=== PATIENT | female | born 1990 ===

== ENCOUNTER 2022-08-04 16:59 | Outpatient (CLI) | payer OTHER ==
--- NOTE | 2022-08-05 13:00 | MRI Report ---
PROCEDURE: Knee RT W/O INDICATIONS: PAIN IN RIGHT KNEE TECHNIQUE: Noncontrast sagittal PD fast spin echo and T2 fast spin echo with fat saturation, sagittal 3-D gradie nt sequence with fat saturation; coronal T1 spin echo and PD fast spin echo with fat saturation, and axial PD fast spin echo with fat saturation through the knee. COMPARISON: None. FINDINGS: Image quality: Excellent. Menisci: Oblique tear involving posterior horn of medial meniscus extending to inferior articulating surface is seen. Lateral meniscus is intact. The meniscal root ligaments appear intact. Cruciate ligaments: Patient is status post prior ACL reconstruction surgery. ACL graft appears mildly thickened with intrasubstance T2 hyperintense signal which may indicate low-grade intrasubstance par tial thickness tear. No full-thickness ACL graft rupture. PCL is intact. Medial structures: The medial collateral ligament appears intact. The posterior oblique ligament, s emimembranosus tendon insertions, and oblique popliteal ligament, and meniscocapsular junction appear intact. Visualized portions of the pes anserinus tendons appear normal. No abnormal bursal fluid. Lateral structures: The lateral collateral ligament, long and short heads of the biceps femoris tend on appear intact. The popliteus tendon appears normal; the popliteofibular ligament appears intact. Iliotibial band appears normal. Anterior structures: The quadriceps and patellar tendons appear intact. Patellar alignment is marilee l. No femoral trochlear dysplasia or ventral trochlear prominence. No edema in the infrapatellar fa t pad. Bones and cartilage: Postsurgical changes are noted in distal femur and proximal tibia. No bone paresh ow contusions or fractures. No significant tibial tunnel or femoral tunnel widening. No tunnel cysts are seen. The cartilage of the medial and lateral femorotibial compartments, as well as the patellof emoral compartment, appears normal in thickness. Joint space: There is small knee joint fluid. No Navarro's cyst. Normal appearing synovial plicae ar e incidentally noted. IMPRESSION: 1. Prior ACL repair with postsurgical changes. No acute fracture or dislocation. Knee alignment is an atomic. No tunnel widening or cysts. 2. Oblique tear involving posterior horn of medial meniscus extending to inferior articulating surfac e. Lateral meniscus is intact. 3. Suggestion of very low-grade intrasubstance partial thickness tear versus sprain involving anterio r cruciate ligament graft. No full-thickness ACL rupture. PCL is intact. 4. Small joint effusion, no gross loose bodies. Reviewed by: Chivo Blair MD on 08/05/2022 12:59 PM PDT Approved by: Chivo Blair MD on 08/05/2022 12:59 PM PDT Station ID: [id number]
== END 2022-08-04 17:00 | disposition home or self-care (01) ==
LOC: DI 16:59
DX: S83.241A Other tear of medial meniscus, current injury, right knee, initial encounter (principal); M25.461 Effusion, right knee